=== PATIENT | female | born 1990 | race Caucasian/White ===

== ENCOUNTER 2022-01-09 14:12 | Outpatient (CLI) | payer OTHER, SELFPAY | END 2022-01-09 14:13 | disposition home or self-care (01) | LOC: FRMREF 14:14 | PROVIDERS: PCP Physician Assistant Medical; Visit Provider Physician Assistant Medical | DX: Z01.419 Encounter for gynecological examination (general) (routine) without abnormal findings (principal); N92.6 Irregular menstruation, unspecified | CPT/HCPCS: 84443 ==

== ENCOUNTER 2024-09-01 13:19 | Outpatient (CLI) | payer OTHER, SELFPAY | END 2024-09-01 13:20 | disposition home or self-care (01) | LOC: NFLDREF 09-04 01:48 | PROVIDERS: PCP Physician Assistant Medical; Referring Provider Physician Assistant Medical; Visit Provider Physician Assistant Medical | DX: N92.0 Excessive and frequent menstruation with regular cycle (principal); F98.8 Other specified behavioral and emotional disorders with onset usually occurring in childhood and adolescence; F90.0 Attention-deficit hyperactivity disorder, predominantly inattentive type; Z13.6 Encounter for screening for cardiovascular disorders | CPT/HCPCS: 80053; 80061; 84443 ==